=== PATIENT | female | born 1965 | race Caucasian/White ===

== ENCOUNTER → 2019-04-04 | Outpatient (CLI) | payer MEDICAID ==
[~2019-04-04] MED LIST: CA C1TAB28 PO; CETI10TA24 PO; CHOL500045 PO; CLON0.5T11 PO; CYCL-259 PO; DICY10AM2 PO; FAMO40TA61 PO; FLAX1000 PO; GABA600T7 PO; GADOTERATE 7.5 MMOL/15 ML SYR ONE; GLAT20KI SC; HYDR-3237 PO; KETO1DRO OP; MODA100T22 PO; MONT10TA9 PO; NITR0.4T41 SL; OXYB10TA6 PO; PATANOL; PROM50TA4 PO; RABE20TA18 PO; RANI-467 PO; TEMA15CA PO; ZOLP10TA PO; [UNRECOGNIZED DRUG - OTHER]
== END | disposition home or self-care (01) ==
LOC: EDSTATUS 02-22 13:00 → RAD 14:28
PROVIDERS: ATTEND Psychiatry & Neurology Neurology
DX: I67.82 Cerebral ischemia (principal); G35 Multiple sclerosis
CPT/HCPCS: 70553; A9575